=== PATIENT | male | born 1990 | race Caucasian/White ===

== ENCOUNTER 2020-08-17 12:20 | Emergency (ER) | payer MEDICAID ==
[~2020-08-17] VITALS: Ht 185.4 cm; Wt 75.0 kg
[2020-08-17 14:37] VITALS: BP 130/80
== END 2020-08-17 14:39 | disposition home or self-care (01) ==
LOC: EMS 12:23
DX: F41.9 Anxiety disorder, unspecified (principal); F17.210 Nicotine dependence, cigarettes, uncomplicated; Z76.0 Encounter for issue of repeat prescription
CPT/HCPCS: Z7502